=== PATIENT | male | born 1930 | race Caucasian/White ===

== ENCOUNTER → 2016-10-03 | Outpatient (CLI) | payer MEDICARE, BC | LOC: MW.CHGS 08:00 | PROVIDERS: ATTEND Surgery | DX: D12.6 Benign neoplasm of colon, unspecified (principal); K57.90 Diverticulosis of intestine, part unspecified, without perforation or abscess without bleeding; Z86.010 Personal history of colon polyps | CPT/HCPCS: 99204 ==

== ENCOUNTER 2016-11-02 09:22 | Day surgery (SDC) | payer MEDICARE, BC ==
[~2016-11-02 09:22] MED LIST: Lactated Ringers 1,000 ML IV SCH
[2016-11-02] MEDS ORDERED: Lidocaine 2% 5 ML SDV ONE (09:50)
[2016-11-02] MEDS ORDERED: fentaNYL 100 MCG/2 ML SDV ONE (09:51)
[2016-11-02] MEDS ORDERED: Propofol 200 MG/20 ML SDV ONE ×3 (09:51→10:53)
[2016-11-02] MEDS ORDERED: Midazolam 1 MG/ML 2 ML SDV ONE (09:51)
--- NOTE | 2016-11-02 09:57 | PCM.PREANE ---
Preanesthetic Assessment - Anesthesia/Transfusion/Family Hx Anesthesia History: Prior Anesthesia Without Reaction Family History of Anesthesia Reaction: No Transfusion History: Prior Transfusion Without Reaction Intubation History: Unknown - Review of Systems General: No Symptoms Pulmonary: No Symptoms Cardiovascular: No Symptoms Neurological: No Symptoms Other: Reports: None - Physical Assessment Height: 1.75 m Weight: 72.575 kg ASA Class: 2 Mental Status: Alert & Oriented x3 Airway Class: Mallampati = 2 Dentition: Reports: Normal Dentition Thyro-Mental Finger Breadths: 3 Mouth Opening Finger Breadths: 3 ROM/Head Extension: Limited/Partial Lungs: Clear to auscultation, Normal respiratory effort Cardiovascular: Regular Rate, Regular Rhythm - Allergies Allergies/Adverse Reactions: Allergies Allergy/AdvReac Type Severity Reaction Status Date / Time No Known Allergies Allergy Verified 10/31/16 09:33 - Blood Blood Available: No - Anesthesia Plan Pre-Op Medication Ordered: None - Acknowledgements Anesthesia Type Planned: MAC Pt an Appropriate Candidate for the Planned Anesthesia: Yes Alternatives and Risks of Anesthesia Discussed w Pt/Guardian: Yes Pt/Guardian Understands and Agrees with Anesthesia Plan: Yes PreAnesthesia Questionnaire HEENT History: Reports: Other (See Below) Other HEENT History: wears glasses, has top partial Cardiovascular History: Reports: High Cholesterol, Hypertension Gastrointestinal History: Reports: Colon Polyp, GI Bleed Genitourinary History: Reports: Prostate Disorder (h/o prostate cancer '07 with radical prostatectomy and pelvic lymphadenectomy) Hematologic History: Reports: Blood Transfusion(s) Oncologic (Cancer) History: Reports: Prostate - Past Surgical History Head Surgeries/Procedures: Reports: None HEENT Surgical History: Reports: Cataract Surgery GI Surgical History: Reports: Cholecystectomy, Colonoscopy (x2 ,last one 3 years ago), Other (See Below) (vagotomy) Male Surgical History: Reports: Prostatectomy Other Male Surgeries/Procedures: hx radical prostatectomy followed by radiation tx - SUBSTANCE USE Smoking Status *Q: Former Smoker Tobacco Use Within Last Twelve Months: No Recreational Drug Use History: No - HOME MEDS Home Medications: Home Meds Fish Oil/[place]-3 Fatty Acids [Fish Oil 1,000 MG] 1,000 mg PO DAILY 10/31/16 [ History] Gluc HCl/Csa/Chilo Hy/Hyalur Ac [Glucosamine Chondroitin] 1 tab PO DAILY [History] Hydrochlorothiazide 25 mg PO DAILY 10/31/16 [History] atorvaSTATin Calcium [Atorvastatin Calcium] 20 mg PO DAILY 10/31/16 [History] - CURRENT (IN HOUSE) MEDS Current Meds: Current Medications Lactated Ringer's (Ringers, Lactated) 1,000 mls @ 125 mls/hr IV ASDIRECTED ADOLPH Discontinued Medications Fentanyl (Sublimaze) Confirm Administered Dose 100 mcg .ROUTE .STK-MED ONE Stop: 11/02/16 09:52 Lidocaine (Xylocaine-Mpf 2%) Confirm Administered Dose 10 ml .ROUTE .STK-MED ONE Stop: 11/02/16 09:51 Midazolam HCl (Versed 1 Mg/Ml) Confirm Administered Dose 2 mg .ROUTE .STK-MED ONE Stop: 11/02/16 09:52 Propofol (Diprivan 20 Ml) Confirm Administered Dose 400 mg .ROUTE .STK-MED ONE Stop: 11/02/16 09:52
[2016-11-02] MEDS ORDERED: Lactated Ringers 1,000 ML IV SCH (11:15)
--- NOTE | 2016-11-02 11:17 | PCM.OPNOTE ---
- General Post-Op/Procedure Note Date of Surgery/Procedure: 11/02/16 Operative Procedure(s): Colonoscopy with cold descending colon polypectomy Pre Op Diagnosis: Personal history of colon polyps Post-Op Diagnosis: Descending colon polyp. Mild sigmoid diverticulosis. Anesthesia Technique: MAC (ASA II) Primary Surgeon: Christophe Leon Condition: Good Free Text/Narrative:: Dictation [id number] CPTCODE: [id number]
--- NOTE | 2016-11-02 11:33 | PCM.POSTAN ---
POST ANESTHESIA ASSESSMENT - MENTAL STATUS Mental Status: alert, oriented - RESPIRATORY Respiratory Status: respiratory rate WNL, airway patent, O2 saturation stable - CARDIOVASCULAR CV Status: pulse rate WNL, blood pressure stable - GASTROINTESTINAL GI Status: no symptoms - POST OP HYDRATION Hydration Status: adequate & stable - OBSERVATIONS Free Text/Narrative:: no anesthesia problems
[2016-11-02 12:06] VITALS: BP 145/66
--- NOTE | 2016-11-02 18:14 | OR ---
SURGEON: Christophe Leon M.D. DATE OF PROCEDURE: 11/02/2016 OPERATION PERFORMED: Colonoscopy with cold descending colon polypectomy. ANESTHESIA: MAC. ASA CLASSIFICATION: II. PREOPERATIVE DIAGNOSIS: Personal history of colon polyps. POSTOPERATIVE DIAGNOSES: 1. Descending colon polyp. 2. Mild sigmoid diverticulosis. DESCRIPTION OF PROCEDURE: The patient was taken to the endoscopy room and positioned on the endoscopy table in the left lateral decubitus position. Time-out was called for appropriate identification of patient and procedure. Monitored anesthesia care was provided. The colonoscope was inserted into the rectum and advanced with moderate difficulty to the cecum where the colonoscope was retroflexed to visualize the ascending colon from below. The colonoscope was then straightened and slowly withdrawn. The cecum, ascending colon, hepatic flexure, transverse colon, and splenic flexure showed no tumors, polyps, diverticula, angiodysplasia, or evidence of inflammatory bowel disease. One small polyp was encountered in the descending colon and removed with the cold biopsy forceps. No bleeding was noted. Sigmoid colon demonstrated a few scattered diverticula. No stricture, spasm, or bleeding was noted. No polyps were encountered. The colonoscope was withdrawn to the rectum and retroflexed to visualize the anal orifice from above. No tumors or polyps were seen and there were no acute hemorrhoidal changes. The colonoscope was then straightened, the rectum aspirated, and the colonoscope removed. The patient tolerated the procedure well and was taken to recovery room in stable condition. KITA ARIAS /[id number]
== END 2016-11-02 12:36 | disposition home or self-care (01) ==
LOC: MW.SDS 09:22
PROVIDERS: ATTEND Surgery
PROC: 0DBM8ZZ Excision of Descending Colon, Via Natural or Artificial Opening Endoscopic (ICD-10-PCS; principal; 2016-11-02)
DX: Z12.11 Encounter for screening for malignant neoplasm of colon (principal); D12.4 Benign neoplasm of descending colon; K57.30 Diverticulosis of large intestine without perforation or abscess without bleeding; I10 Essential (primary) hypertension; E78.00 Pure hypercholesterolemia, unspecified; Z86.010 Personal history of colon polyps; Z85.46 Personal history of malignant neoplasm of prostate; Z87.891 Personal history of nicotine dependence; Z79.899 Other long term (current) drug therapy; Z90.49 Acquired absence of other specified parts of digestive tract; Z90.79 Acquired absence of other genital organ(s); Z98.890 Other specified postprocedural states
CPT/HCPCS: 45380; J7120; 00810; 88305; J2250; J2704; J3010